=== PATIENT | male | born 1990 | race Caucasian/White ===

== ENCOUNTER 2016-07-26 00:28 | Emergency (ER) | payer SELFPAY ==
[2016-07-26 00:28] VITALS: BP 122/76
[2016-07-26] MEDS ORDERED: ALBUTEROL SULFATE 8GM INHALER. ONE (00:31)
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
[2016-07-26] MEDS ORDERED: ASPIRIN 81 MG TAB.CHEW PO ONE (00:45)
[2016-07-26] MEDS ORDERED: IV RINGERS SOLUTION,LACTATED 1,000 ML IV SCH (00:45)
[2016-07-26] MEDS ORDERED: KETOROLAC 60 MG/2 ML VIAL. IM ONE (00:45)
[2016-07-26] MEDS ORDERED: ALBUTEROL SULFATE 8GM INHALER. INH ONE (00:45)
[2016-07-26 01:08] LABS: BASO % 0 % (0-3); EOS # 0.5 x10^3/uL (0.0-0.7); EOS % 5 % (0-3); HEMATOCRIT 42.3 % (39.0-53.0); HEMOGLOBIN 14.3 g/dL (13.0-17.5); LYMPH # 2.3 x10^3/uL (1.0-4.8); LYMPH % 25 % (24-48); MEAN CORPUSCULAR HEMOGLOBIN 32 pg (25-35); MEAN CORPUSCULAR HGB CONC 34 g/dL (31-37); MEAN CORPUSCULAR VOLUME 94 fL (79-100); MONO # 0.8 x10^3/uL (0.0-1.1); MONO % 8 % (0-9); NEUT # 5.7 x10^3uL (1.8-7.7); NEUT % 61 % (31-73); PLATELET COUNT 229 x10^3/uL (140-400); RED BLOOD COUNT 4.49 x10^6/uL (4.30-5.70); RED CELL DISTRIBUTION WIDTH 13.2 % (11.5-14.5); WHITE BLOOD COUNT 9.2 x10^3/uL (4.0-11.0)
[2016-07-26 01:17] LABS: BACTERIA,URINE 0 /HPF (0-FEW); BILIRUBIN,URINE NEG (NEG); CLARITY,URINE CLEAR; COLOR,URINE YELLOW; GLUCOSE,URINE NEG (NEG); NITRITE,URINE NEG (NEG); RBC,URINE RARE /HPF (0-2); UROBILINOGEN,URINE 0.2 mg/dL (0.2 mg/dL); WBC,URINE RARE /HPF (0-4)
[2016-07-26 01:18] LABS: BARBITURATES NEG (NEG); BENZODIAZEPINES NEG (NEG); CANNABINOIDS POS (NEG); COCAINE NEG (NEG); METHADONE NEG (NEG); OPIATES NEG (NEG); PHENCYCLIDINE NEG (NEG)
[2016-07-26 01:19] LABS: AMPHETAMINE/METHAMPHETAMINE POS (NEG)
[2016-07-26 01:27] LABS: ALBUMIN 3.4 g/dL (3.4-5.0); CALCIUM 8.6 mg/dL (8.5-10.1); CREATININE 0.9 mg/dL (0.7-1.3); DIRECT BILIRUBIN 0.1 mg/dL (0.0-0.2); POTASSIUM 4.3 mmol/L (3.5-5.1); TOTAL BILIRUBIN 0.3 mg/dL (0.2-1.0); TOTAL PROTEIN 6.6 g/dL (6.4-8.2)
--- NOTE | 2016-07-26 07:20 | RAD ---
Indication: Chest pain and short of air tonight. Technique: Two-view chest radiograph was obtained. No comparison is available. Findings: Nodular density in the right midlung field could represent summation of overlapping ribs and vessels. The lungs otherwise are clear. The heart is not enlarged and there is no heart failure. There is no pleural effusion. Bony structures are intact. Nodular density measures 15 mm in size. Impression: Nodular density in the right midlung field may represent summation of overlapping ribs and vessels. Either 3 month follow-up chest radiograph or CT chest with contrast can be considered to exclude true nodule.
--- NOTE | 2016-07-26 10:49 | EKG ---
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
== END 2016-07-26 01:16 | disposition left against medical advice (07) ==
LOC: ER 00:28
DX: S20.219A Contusion of unspecified front wall of thorax, initial encounter (principal); J40 Bronchitis, not specified as acute or chronic; F12.10 Cannabis abuse, uncomplicated; F14.10 Cocaine abuse, uncomplicated; F15.10 Other stimulant abuse, uncomplicated; F17.210 Nicotine dependence, cigarettes, uncomplicated; V89.2XXA Person injured in unspecified motor-vehicle accident, traffic, initial encounter; Y93.89 Activity, other specified; Y99.8 Other external cause status; Y92.89 Other specified places as the place of occurrence of the external cause
CPT/HCPCS: 36415; 71020; 80048; 80076; 81001; 82553; 83690; 83735; 83880; 84443; 84484; 85027; 85379; 85610; 85730; 93005; 94640; 99285; G0481; 94664

== ENCOUNTER 2017-01-03 19:40 | Emergency (ER) | payer SELFPAY ==
[~2017-01-03] VITALS: Ht 177.8 cm; Wt 67.7 kg
[2017-01-03] MEDS ORDERED: IV NORMAL SALINE 1,000ML 1,000 ML IV SCH (19:49)
[2017-01-03] MEDS ORDERED: ONDANSETRON PF 4 MG/2 ML VIAL. ONE (19:52)
[2017-01-03] MEDS ORDERED: ONDANSETRON PF 4 MG/2 ML VIAL. IV ONE (20:00)
[2017-01-03] MEDS ORDERED: fentaNYL PF 100 MCG/2 ML VIAL IV ONE (20:00)
[2017-01-03] MEDS ORDERED: ceFAZolin SODIUM 1 GM VIAL ONE (20:12)
[2017-01-03] MEDS ORDERED: IV NORMAL SALINE 50ML 50 ML ONE (20:12)
[2017-01-03] MEDS ORDERED: DIPHTH,PERTUSS(ACELL),TET TOX 0.5 ML DISP.SYRIN. VAX IM ONE (20:15)
--- NOTE | 2017-01-03 20:54 | PHYS DOC ---
Past History Past Medical History: Anxiety Past Surgical History: No Surgical History Smoking: Cigarettes Alcohol Use: Occasionally Drug Use: Amphetamine, Cocaine, Marijuana, Methamphetamine Adult General Chief Complaint Chief Complaint: LACERATION HPI HPI Patient is a 26-year-old male who presents ambulatory to the ED with the complaint of right index finger laceration. Patient is right-handed. He states he was attempting to close a serrated knife that he bought at a gas station and it lacerated his right index finger. This happened just prior to arrival. Last tetanus is unknown. Denies allergy States he has not had anything to eat or drink all day. Review of Systems Review of Systems Review of systems was not obtained due to the patient's agitation over his clinical condition Current Medications Current Medications Current Medications Medications (Trade) Dose Ordered Sig/Thomas Start Time Stop Time Status Last Admin Dose Admin Cefazolin Sodium (Ancef) 1 gm STK-MED ONCE 01/03/17 20:12 01/03/17 20:13 DC Cefazolin Sodium 1 gm/Sodium Chloride 50 ml @ 100 mls/hr 1X ONCE 01/03/17 20:00 01/03/17 20:29 DC 01/03/17 20:12 100 MLS/HR Diphtheria/ Tetanus/Acell Pertussis (Boostrix) 0.5 ml ONCE ONCE 01/03/17 20:15 01/03/17 20:16 DC Fentanyl Citrate (Fentanyl 2ml Vial) 50 mcg 1X ONCE 01/03/17 20:00 01/03/17 20:01 DC 01/03/17 20:00 50 MCG Ondansetron HCl (Zofran) 4 mg STK-MED ONCE 01/03/17 19:52 01/03/17 19:53 DC Sodium Chloride 50 ml @ As Directed STK-MED ONCE 01/03/17 20:12 01/03/17 20:13 DC Allergies Allergies Allergies Coded Allergies Type Severity Reaction Last Updated Verified No Known Drug Allergies 01/03/17 No Physical Exam Physical Exam Constitutional: Well developed, well nourished, diaphoretic, hyperventilating, alert but in significant distress HENT: Normocephalic, atraumatic, bilateral external ears normal, nose normal. [] Eyes: conjunctiva normal, no discharge. [] Neck: Normal range of motion, no stridor. [] Skin: Warm, dry, no erythema, no rash. [] Extremities: Right hand: The right index finger has a large, deep, laceration on the thumb side approximately over the PIP joint. There is significant bleeding. Distally the finger is slightly pale. There appears to be deformity consistent with ligamentous injury over the PIP collateral ligaments. Neurologic: Alert and oriented X 3, normal motor function, normal sensory function, no focal deficits noted. [] Current Patient Data Lab Results Laboratory Tests Test 01/03/17 20:08 Glucose (Fingerstick) 87 mg/dL (70-99) EKG EKG [] Radiology/Procedures Radiology/Procedures Three-view x-rays of the right index finger read by me. The middle phalanx has a fracture near the proximal aspect that is linear and appears consistent with the history and lines up with the external laceration. It appears to be about 90 % through and through. It is just distal to the joint. [] Course & Med Decision Making Course & Med Decision Making Pertinent Labs and Imaging studies reviewed. (See chart for details) On arrival, after assessing the laceration, I bandaged the finger with nonadherent dressing and a gauze wrap. 26-year-old male, right-handed, presents with a significant laceration to his right index finger with ligament and bone involvement. Patient on arrival was diaphoretic and complained of dry heaves, he was given IV fluids, IV pain and nausea medication. He was given a tetanus shot and IV antibiotics. Patient will need to see a hand specialist. I called the [facility] transfer line at [phone] to arrange transfer. I discussed this with the patient and his female interface control officer. 2117 phone call back from Transfer Ctr., Doctor Endress will accept the patient to be transferred by EMS to , he will go to the preoperative holding area. 2131 EMS arrived to transport the patient to . Paperwork had been completed and patient was ready to go. He had agreed to transfer and had signed paperwork. Evidently, EMS advised that the patient's girlfriend would not be able to ride in the ambulance with them. Before we were able to discuss this or try to help with transportation for the girlfriend, the patient jumped up and ran down the bell, yelling obscenities, stating that he will not go anywhere without her. Patient still had his IV in his left arm, still had the bandage on his right index finger. We attempted to verbally encourage the patient to stay and work out the concern, also attempted to encourage him to allow us to take out his IV if he did insist on leaving. Patient was not listening to any recommendations, he ran out of the ED, ran across the parking lot and left on foot. Although he did not sign AMA, I am signing the patient out AGAINST MEDICAL ADVICE, because he was clearly advised to be transferred to , we discussed the reasons for the transfer, and he chose not to comply with this. We called transfer center to let them know that he will not be coming after all. [] Dragon Disclaimer Dragon Disclaimer This chart was dictated in whole or in part using Voice Recognition software in a busy, high-work load, and often noisy Emergency Department environment. It may contain unintended and wholly unrecognized errors or omissions. Departure Departure: Impression: Primary Impression: Laceration of right index finger with complication Additional Impression: Fracture of unspecified phalanx of right index finger, initial encounter for open fracture Disposition: 07 AGAINST MEDICAL ADVICE Condition: GUARDED Referrals: PCP,NO (PCP) Problem Qualifiers CHRISSIE NDIAYE MD Jan 03, 2017 20:54
[2017-01-03 21:23] VITALS: BP 130/56
--- NOTE | 2017-01-04 08:40 | RAD ---
Hand x-ray Indication: Cut to the right index finger with knife. Technique: AP view of the hand and 2 views of the index finger Comparison: None Findings: There is a complete linear horizontally oriented minimally displaced fracture through the proximal metaphysis of the middle phalanx of the second (index) finger. There is no extension to the articular surface. Soft tissue laceration is seen at the lateral aspect of the finger adjacent to the fracture site. Impression: Fracture of the index finger with soft tissue laceration as described above.
== END 2017-01-03 21:32 | disposition left against medical advice (07) ==
LOC: ER 19:40
DX: S61.210A Laceration without foreign body of right index finger without damage to nail, initial encounter (principal); F17.210 Nicotine dependence, cigarettes, uncomplicated; F41.9 Anxiety disorder, unspecified; W26.0XXA Contact with knife, initial encounter; Y93.89 Activity, other specified; Y99.8 Other external cause status; Y92.89 Other specified places as the place of occurrence of the external cause
CPT/HCPCS: 73140; 82947; 90471; 90715; 96365; 96375; 99284; J0690; J2405; J3010; J7030

== ENCOUNTER → 2021-08-20 | Outpatient (CLI) | payer OTHER ==
[2021-08-20 13:30] LABS: BASO # 0.2 x10^3/uL (0.0-0.2); BASO % 1 % (0-3); EOS % 0 % (0-3); HEMATOCRIT 46.7 % (39.0-53.0); LYMPH # 0.6 x10^3/uL (1.0-4.8); LYMPH % 4 % (24-48); MEAN CORPUSCULAR HEMOGLOBIN 31 pg (25-35); MEAN CORPUSCULAR HGB CONC 34 g/dL (31-37); MEAN CORPUSCULAR VOLUME 92 fL (79-100); MONO # 0.5 x10^3/uL (0.0-1.1); MONO % 3 % (0-9); NEUT # 14.4 x10^3uL (1.8-7.7); NEUT % 92 % (31-73); PLATELET COUNT 234 x10^3/uL (140-400); RED BLOOD COUNT 5.11 x10^6/uL (4.30-5.70); RED CELL DISTRIBUTION WIDTH 13.1 % (11.5-14.5); WHITE BLOOD COUNT 15.6 x10^3/uL (4.0-11.0)
[2021-08-20 13:40] LABS: CALCIUM 9.2 mg/dL (8.5-10.1); CREATININE 0.9 mg/dL (0.7-1.3); GFR 98.4; POTASSIUM 4.4 mmol/L (3.5-5.1)
[2021-08-20 13:52] LABS: ACETAMIN 29.9 mcg/mL (10-30)
[2021-08-20 14:09] LABS: % LYMPHS 7 % (24-48); % MONOS 4 % (0-10); % SEGS 89 % (35-66); PLT ESTIMATE ADEQUATE (ADEQUATE)
== END ==
LOC: SPEC 13:14
PROVIDERS: ATTEND Emergency Medicine
DX: R07.9 Chest pain, unspecified (principal)
CPT/HCPCS: 36415; 80048; 80329; 85007; 85025; G0480